=== PATIENT | female | born 1940 | race Caucasian/White ===

== ENCOUNTER → 2023-07-22 | Outpatient (CLI) | payer MEDICARE ==
[2023-07-22 11:03] LABS: Source, Urine Clean Catch
[2023-07-22 12:59] LABS: Appearance, Urine Clear (Clear); Bilirubin, Urine Neg (Neg); Blood, Urine Neg (Neg); Glucose Qualitative, Urine Neg (Neg); Ketones, Urine Neg (Neg); Leukocyte Esterase, Urine Neg (Neg); Nitrite, Urine Neg (Neg); Protein, Urine Neg (Neg); Urobilinogen, Urine NORM (Normal)
[2023-07-22 13:05] LABS: Color, Urine Yellow (P-Yellow)
== END | disposition home or self-care (01) ==
LOC: LAB 11:02 → LAB SHORT 11:02
PROVIDERS: Family Medicine
DX: R30.0 Dysuria (principal)
CPT/HCPCS: 81003

== ENCOUNTER 2023-10-02 15:33 | Emergency (ER) | payer MEDICARE ==
[~2023-10-02] VITALS: Ht 152.4 cm; Wt 52.2 kg
[2023-10-02] MEDS ORDERED: Ketorolac Tromethamine 10 MG Tab PO ONE (17:00)
[2023-10-02] MEDS ORDERED: Acetaminophen 500 MG Tab PO ONE (17:00)
[2023-10-02 17:26] VITALS: BP 148/72
== END 2023-10-02 17:30 | disposition home or self-care (01) ==
LOC: ER 15:33
DX: T14.8XXA Other injury of unspecified body region, initial encounter (principal); W18.30XA Fall on same level, unspecified, initial encounter; Z88.2 Allergy status to sulfonamides
CPT/HCPCS: 73502; 99283-25; A9270

== ENCOUNTER 2023-10-04 14:23 | Emergency (ER) | payer MEDICARE ==
[~2023-10-04] VITALS: Ht 160 cm; Wt 59.0 kg
[2023-10-04] MEDS ORDERED: HYDROcodone 5-APAP 325 TAB PO ONE (20:10)
[2023-10-04] MEDS ORDERED: AMLODIPINE BES2.5 MG PO (21:18)
[2023-10-04] MEDS ORDERED: PLAVIX75 MG PO (21:18)
[2023-10-04] MEDS ORDERED: Ramipril10 MG PO (21:18)
[2023-10-04] MEDS ORDERED: SYNTHROID75 MCG PO (21:19)
[2023-10-04] MEDS ORDERED: ATORVASTATIN CA20 MG PO (21:19)
[2023-10-04] MEDS ORDERED: HYDROcodone 5-APAP 325 TAB PO PRN (22:30)
[2023-10-05] MEDS ORDERED: Levothyroxine Sodium 0.075 MG Tab PO SCH (09:00)
[2023-10-05] MEDS ORDERED: Docusate Sodium 100 MG Cap PO SCH (09:00)
[2023-10-05] MEDS ORDERED: AmLODIPine Besylate 5 MG Tab PO SCH (09:00)
[2023-10-05] MEDS ORDERED: Lisinopril 20 MG Tab PO SCH (09:00)
[2023-10-05] MEDS ORDERED: Atorvastatin 10 MG Tab PO SCH (21:00)
[2023-10-05] MEDS ORDERED: Atorvastatin 40 MG Tab PO SCH (21:00)
[2023-10-05] MEDS ORDERED: Clopidogrel Bisulfate 75 MG Tab PO SCH (21:00)
[2023-10-06 12:44] VITALS: BP 130/58
== END 2023-10-06 15:35 ==
LOC: ER 14:23
DX: S32.592A Other specified fracture of left pubis, initial encounter for closed fracture (principal); I10 Essential (primary) hypertension; E03.9 Hypothyroidism, unspecified; W18.30XA Fall on same level, unspecified, initial encounter; Z88.2 Allergy status to sulfonamides; Z79.899 Other long term (current) drug therapy; Z79.02 Long term (current) use of antithrombotics/antiplatelets; Z86.73 Personal history of transient ischemic attack (TIA), and cerebral infarction without residual deficits
CPT/HCPCS: 72192; 97162; 97530; 99284-25; A9270